=== PATIENT | female | born 1965 | race African-American/Black ===

== ENCOUNTER → 2020-07-04 | Outpatient (CLI) | payer OTHER ==
--- NOTE | 2020-07-04 10:42 | RAD ---
FOREARM LEFT, WRIST 2V LEFT DATE: 07/04/2020 12:00 AM INDICATION: ARM PAIN / Spl. Instructions: / History: COMPARISON: None. FINDINGS: Bones: There is no evidence of acute fracture or dislocation. Joints: The joint spaces are normal. Miscellaneous: None. IMPRESSION: No acute osseous abnormality. Electronically signed by: Vitaliy Buckley MD (07/04/2020 10:39 AM) [id number]
== END ==
LOC: PMG 10:13
PROVIDERS: ATTEND Family Medicine
DX: M79.602 Pain in left arm (principal)
CPT/HCPCS: 73090; 73100

== ENCOUNTER 2020-07-20 13:56 | Emergency (ER) | payer OTHER ==
[~2020-07-20] VITALS: Ht 177.8 cm; Wt 90.0 kg
[2020-07-20 14:00] VITALS: BP 152/106
--- NOTE | 2020-07-20 14:18 | PHYS DOC ---
Adult General Chief Complaint Chief Complaint: ITCHING HPI HPI Patient is a 52 year old female who presents with complaints of itching all over and skin peeling for the past 3 days. Patient reports that approximately a week to 10 days ago she seen her doctor for what she describes as a viral illness and was started on amoxicillin and prednisone. Patient states that her symptoms did not resolve and her Dr. Simpson placed her on additional antibiotic Z-Rayshawn which she completed just a few days ago. Patient states that she started to feel flushed and noticed that her her skin was itching all over and peeling. She states that she took a shower and scrubbed her skin to get the peeling skin particles off and used Eucerin cream lotion which seemed to help. Patient states she also took a Benadryl today which resolved her itching. Patient denies any recent fever or chills, shortness of breath, cough, nasal congestion, chest congestion, chest pains, or swelling of her extremities. Patient denies any abdominal pain, nausea, vomiting, diarrhea, or constipation. Patient denies any problems urinating, or vaginal discharge. Patient denies any back pains or pain in her joints. Patient denies any headaches focal weaknesses or sensory changes. Patient denies any increased urination or increased thirst, denies sw elling of her glands. Patient denies any recent depressions or anxieties. Patient denies homicidal or suicidal ideations. Patient denies being a cigarette smoker, denies drinking alcohol, denies any illicit drug use. Patient states nobody else living in her home is having the same symptoms. (AUSTEN ARTHUR APRN) Review of Systems Review of Systems Constitutional: Denies fever or chills, complains of itching all over that resolved with taking Benadryl today. Eyes: Denies change in visual acuity, redness, or eye pain HENT: Denies nasal congestion or sore throat Respiratory: Denies cough or shortness of breath Cardiovascular: No additional information not addressed in HPI GI: Denies abdominal pain, nausea, vomiting, bloody stools or diarrhea : Denies dysuria or hematuria Musculoskeletal: Denies back pain or joint pain Integument: Denies skin lesions, however complains of skin peeling all over, denies skin rashes. Neurologic: Denies headache, focal weakness or sensory changes Endocrine: Denies polyuria or polydipsia Psychiatric: Patient denies depressions, anxieties, homicidal, or suicidal ideations. All other systems were reviewed and found to be within normal limits, except as documented in this note. (AUSTEN ARTHUR APRN) Current Medications Current Medications Patient reports taking metoprolol prescription at home and took her normal dose today. (AUSTEN ARTHUR APRN) Allergies Allergies Patient denies any allergies to medications that she is aware of. Patient denies any food allergies that she is aware of. (AUSTEN ARTHUR APRN) Physical Exam Physical Exam Constitutional: Well developed, well nourished, no acute distress, non-toxic appearance. HENT: Normocephalic, atraumatic, bilateral external ears normal, oropharynx moist, no oral exudates, nose normal. Eyes: PERRLA, EOMI, conjunctiva normal, no discharge. Neck: Normal range of motion, no tenderness, supple, no stridor. Cardiovascular:Heart rate regular rhythm, no murmur, heart sounds S1-S2 auscultation. Lungs & Thorax: Bilateral breath sounds clear to auscultation all lung stallings Abdomen: Bowel sounds normal all 4 quadrants auscultation., soft, no tenderness, no masses, no pulsatile masses. Skin: Warm, dry, no erythema, physical exam presents with superficial desquamation along trunk buttocks bilateral lower and bilateral upper e xtremities without drainage, erythema, edema, no infectious process noted, no open skin lesions. Back: No tenderness, no CVA tenderness. Extremities: No tenderness, no cyanosis, no clubbing, ROM intact, no edema. Neurologic: Alert and oriented X 3, normal motor function, normal sensory function, no focal deficits noted. Psychologic: Affect normal, judgement normal, mood normal. (AUSTEN ARTHUR APRN) Current Patient Data Vital Signs Temperature 97.7 oral temp heart rate 92, 99% O2 sat on room air, blood pressure 154/106. (AUSTEN ARTHUR APRN) EKG EKG [] (AUSTEN ARTHUR APRN) Radiology/Procedures Radiology/Procedures [] (AUSTEN ARTHUR APRN) Heart Score Risk Factors: Risk Factors: DM, Current or recent (<one month) smoker, HTN, HLP, family history of CAD, obesity. Risk Scores: Risk Factors: DM, Current or recent (<one month) smoker, HTN, HLP, family history of CAD, obesity. (AUSTEN ARTHUR APRN) Course & Med Decision Making Course & Med Decision Making Pertinent Labs and Imaging studies reviewed. (See chart for details) 55-year-old female patient presents emergency department with complaints of skin itching and peeling for the last 3 days, patient feels like this started after she took amoxicillin, Z-Rayshawn, prednisone for what she describes as a viral illness these prescriptions were given to her by her Dr. Simpson. Patient states she took a Benadryl today which resolved her itching. Physical examination reveals a superficial skin sloughing consistent with a superficial desquamation dermatitis most likely related to an allergic reaction to her recently taken medications. There is no erythema noted, no raised rash noted, skin sloughing presentation was of irregular borders with sizes from pinpoint to approximately 3 mm in diameter, there was no drainage, no open lesions, this does not present like Velasquez-Raphael syndrome there is no evidence of a toxic epidermal necrolysis, this does not present consistent with eczema. Discussed physical findings with patient, will prescribe p.o. Atarax for itching, triamcinolone cream for dry skin symptoms, patient will continue to take [id number] Benadryl 3 times a day as needed for itching, patient states she will follow-up with her Dr. Simpson tomorrow morning. Patient gave verbal understanding of discharge instructions, return to ER concerns, patient had no further questions or concerns, patient discharged home without incident. (AUSTEN ARTHUR APRN) Dragon Disclaimer Dragon Disclaimer This electronic medical record was generated, in whole or in part, using a voice recognition dictation system. (AUSTEN ARTHUR APRN) Attending Co-Sign The patient was seen and interviewed as well as examined at the bedside. The chart was reviewed. The case was discussed. Agree with the plan of care. (RAN TEJEDA DO) Departure Departure: Impression: Primary Impression: Allergic reaction Additional Impression: Desquamative dermatitis Disposition: 01 DC HOME SELF CARE/HOMELESS Condition: STABLE Referrals: CORNELIO SIMPSON MD (PCP) Patient Instructions: Itching-Brief Additional Instructions: TAKE PRESCRIBED MEDICATIONS DIRECTED, return to the emergency department for worsening symptoms, see your Dr. Manning tomorrow for reevaluation. Scripts Hydroxyzine Hcl (HYDROXYZINE HCL) 10 Mg Tablet 25 MG PO Q6-8HRS for ITCHING, #10 TAB Prov: AUSTEN ARTHUR APRN 07/20/20 Triamcinolone Acetonide (TRIAMCINOLONE ACETONIDE 0.025% CREAM) 15 Gm Cream..g. 1 KAYLIN TP BID for DRY SKIN ITCHING, #30 GM Prov: AUSTEN ARTHUR APRN 07/20/20 Problem Qualifiers Primary Impression: Allergic reaction Encounter type: initial encounter Qualified Codes: T78.40XA - Allergy, unspecified, initial encounter AUSTEN ARTHUR APRN Jul 20, 2020 14:18 RAN TEJEDA DO Jul 21, 2020 06:18
[2020-07-20] MEDS ORDERED: hydrOXYzine HCL 25 MG TABLET PO PRN (14:45)
[2020-07-20] MEDS ORDERED: HYDR10TA2 PO (14:58)
[2020-07-20] MEDS ORDERED: TRIA15CR2 TP (14:58)
== END 2020-07-20 15:00 | disposition home or self-care (01) ==
LOC: ER 13:56
DX: L30.8 Other specified dermatitis (principal); T36.0X5A Adverse effect of penicillins, initial encounter; T38.0X5A Adverse effect of glucocorticoids and synthetic analogues, initial encounter; Y92.89 Other specified places as the place of occurrence of the external cause
CPT/HCPCS: 99283

== ENCOUNTER 2020-07-30 14:55 | Emergency (ER) | payer OTHER ==
[~2020-07-30] VITALS: Ht 177.8 cm; Wt 90.0 kg
[~2020-07-30 14:55] MED LIST: HYDR10TA2 PO; TRIA15CR2 TP
[2020-07-30 15:15] VITALS: BP 154/86
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
[2020-07-30] MEDS ORDERED: CYCL-331 PO (16:26)
[2020-07-30] MEDS ORDERED: DICL50TA2 PO (16:26)
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
== END 2020-07-30 16:42 | disposition home or self-care (01) ==
LOC: ER 14:55
DX: S13.4XXA Sprain of ligaments of cervical spine, initial encounter (principal); M25.511 Pain in right shoulder; M25.551 Pain in right hip; M54.5 Low back pain; E11.9 Type 2 diabetes mellitus without complications; I10 Essential (primary) hypertension; Z98.84 Bariatric surgery status; Z88.5 Allergy status to narcotic agent; Z88.8 Allergy status to other drugs, medicaments and biological substances; V89.2XXA Person injured in unspecified motor-vehicle accident, traffic, initial encounter; Y93.I9 Activity, other involving external motion; Y92.488 Other paved roadways as the place of occurrence of the external cause; Y99.8 Other external cause status
CPT/HCPCS: 72100; 72125; 73030; 73502; 99284

== ENCOUNTER → 2020-11-11 | Outpatient (CLI) | payer MEDICAID, MEDICARE, OTHER ==
[~2020-11-11] MED LIST changes: +CYCL-331 PO; +DICL50TA2 PO
--- NOTE | 2020-11-11 16:27 | RAD ---
EXAMINATION: CT BONY PELVIS WITHOUT IV CONTRAST CLINICAL HISTORY: Chronic pain syndrome TECHNIQUE: Noncontrast serial axial images obtained through the bony pelvis with sagittal and coronal reconstructions. CT Dose Reduction Employed: One or more of the following individualized dose reduction techniques wer e utilized for this examination: 1. Automated exposure control 2. Adjustment of the mA and/or kV ac cording to patient size 3. Use of iterative reconstruction technique. COMPARISON: MR L-spine 09/25/2020 and 11/25/2015, Right hip radiographs 07/30/2020 FINDINGS: Residual streak artifact related to bilateral total hip arthroplasties despite metal artifact reducti on technique somewhat limits evaluation. Intact bilateral total hip arthroplasties in satisfactory alignment with no definitive evidence of brandon rdware complication. Tips of the acetabular screws penetrating the posterior cortex bilaterally. Mild to moderate degenerative changes bilateral SI joints, greatest in the anterior right SI joint. P ubic symphysis maintained. Partially visualized lumbar degenerative changes. Nonspecific mild patchy sclerosis and lucencies in the bilateral vinny which appears to been present since at least 2015. No a cute fracture. Chronic tendinosis bilateral hamstrings origins. Limited evaluation of the muscles and tendons otherw ise unremarkable. Postoperative changes in the soft tissues overlying the lateral hips. Postoperative changes in the lower abdomen related to partial bowel resection. Layering hyperdensity in the gallbladder, compatible with cholelithiasis and/or hyperdense sludge. Vascular calcifications. IMPRESSION: Bilateral total hip arthroplasties without evidence of hardware complication. Degenerative changes as described. Electronically signed by: Mike Perkins DO (11/11/2020 4:24 PM) [id number]
== END ==
LOC: CT 10:43
PROVIDERS: ATTEND Family Medicine
DX: M46.1 Sacroiliitis, not elsewhere classified (principal); G89.4 Chronic pain syndrome; M47.816 Spondylosis without myelopathy or radiculopathy, lumbar region; Z96.643 Presence of artificial hip joint, bilateral
CPT/HCPCS: 73700

== ENCOUNTER → 2020-11-29 | Outpatient (CLI) | payer OTHER, MEDICAID ==
--- NOTE | 2020-11-29 16:42 | RAD ---
BILATERAL RIB DETAIL SERIES AND PA VIEW CHEST X-RAY-TOTAL OF 5 VIEWS Clinical indications: Fall with chest and rib pain. No acute rib fracture is seen on either side. Chest x-ray demonstrates no acute lung infiltrate or pleural effusion or pulmonary edema or pneumotho rax or lung mass. The heart size and pulmonary vasculature and mediastinum and both heather are unremark able. IMPRESSION: No acute rib fracture is evident. Electronically signed by: Vicente Ferrari MD (11/29/2020 4:39 PM) [id number]
== END ==
LOC: DXRAD 16:05
PROVIDERS: ATTEND Nurse Practitioner Family
DX: R07.81 Pleurodynia (principal)
CPT/HCPCS: 71111

== ENCOUNTER 2020-12-23 15:48 | Emergency (ER) | payer OTHER, MEDICAID ==
[~2020-12-23] VITALS: Ht 177.8 cm; Wt 90.0 kg
[2020-12-23 15:57] VITALS: BP 137/86
[2020-12-23] MEDS ORDERED: HYDROcodone/APAP 5/325MG 1 TAB TABLET PO ONE (16:45)
--- NOTE | 2020-12-23 17:17 | RAD ---
STUDY: US BILATERAL LOWEREXTREMITY VENOUS DOPPLER INDICATION: Lower extremity swelling. DVT. TECHNIQUE: Color-flow and pulsed wave duplex ultrasound with compression of venous structures of the bilateral lower extremities. COMPARISON: 09/07/2013 FINDINGS: Duplex ultrasound with compression of the deep venous structures of the bilateral lower extremities f rom the common femoral vein through the popliteal vein is negative for DVT. The posterior tibial and peroneal veins are segmentally visualized and patent where seen. Normal veno us waveforms and augmentation are noted throughout. Nonspecific subcutaneous edema below the knee on both the right and left. IMPRESSION: No deep venous thrombosis throughout either lower extremity. Electronically signed by: RAMA VICENTE MD (12/23/2020 5:15 PM) [facility]
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
== END 2020-12-23 18:10 | disposition home or self-care (01) ==
LOC: ER 15:48
DX: R22.43 Localized swelling, mass and lump, lower limb, bilateral (principal); G89.29 Other chronic pain; E11.9 Type 2 diabetes mellitus without complications; I10 Essential (primary) hypertension; Z98.84 Bariatric surgery status; Z88.5 Allergy status to narcotic agent; Z88.8 Allergy status to other drugs, medicaments and biological substances
CPT/HCPCS: 93970; 99284-25

== ENCOUNTER 2021-07-30 16:00 | Emergency (ER) | payer MEDICAID, OTHER ==
[~2021-07-30] VITALS: Ht 177.8 cm; Wt 107.0 kg
[~2021-07-30 16:00] MED LIST changes: -CYCL-331 PO; +CYCL10TA19 PO
--- NOTE | 2021-07-30 16:39 | PHYS DOC ---
Past History Past Medical History: CHF, Diabetes, Hypertension (MIKY LEONG ALLEY WORKER) Past Surgical History: Gastric Bypass, Hip Replacement Additional Past Surgical Histo: back (MIKY LEONG ALLEY WORKER) Alcohol Use: None (MIKY LEONG ALLEY WORKER) Adult General Chief Complaint Chief Complaint: MULTIPLE COMPLAINTS HPI HPI Patient is a 56-year-old female patient with history of diabetes type 2, hypertension, CHF with chronic lower extremity edema who presents to the ED today complaining of moderate pain to the right hip that began on July 24, 2021 after she fell. Patient denies any loss of consciousness when she fell. She states the pain has gotten worse hence the reason she came to the ED. She is on oxycodone 10/325 mg which she took prior to coming to the ED with no relief. She appears lethargic. She states this is from the oxycodone. She states she is on Lasix but she takes it whenever she chooses to not as prescribed (MIKY LEONG ALLEY WORKER) Review of Systems Review of Systems Constitutional: Denies fever or chills [] Eyes: Denies change in visual acuity, redness, or eye pain [] HENT: Denies nasal congestion or sore throat [] Respiratory: Denies cough or shortness of breath [] Cardiovascular: No additional information not addressed in HPI [] GI: Denies abdominal pain, nausea, vomiting, bloody stools or diarrhea [] : Denies dysuria or hematuria [] Musculoskeletal: Reports right hip pain. Reports bilateral lower extremity swelling Integument: Denies rash or skin lesions [] Neurologic: Denies headache, focal weakness or sensory changes [] All other systems were reviewed and found to be within normal limits, except as documented in this note. (MIKY LEONG [employer]LEY WORKER) Allergies Allergies Allergies Coded Allergies Type Severity Reaction Last Updated Verified prednisone Allergy Unknown 07/30/20 Yes hydromorphone Adverse Reaction Unknown 07/30/21 Yes (MIKY [employer]ONG [employer]LEY WORKER) Physical Exam Physical Exam Constitutional: Well developed, well nourished, no acute distress, non-toxic appearance. [] HENT: Normocephalic, atraumatic, bilateral external ears normal, oropharynx moist, no oral exudates, nose normal. [] Eyes: PERRLA, EOMI, conjunctiva normal, no discharge. [] Neck: Normal range of motion, no tenderness, supple, no stridor. [] Cardiovascular:Heart rate regular rhythm, no murmur [] Lungs & Thorax: Bilateral breath sounds clear to auscultation [] Abdomen: Bowel sounds normal, soft, no tenderness, no masses, no pulsatile masses. [] Skin: Warm, dry, no erythema, no rash. [] Back: No tenderness, no CVA tenderness. [] Extremities: Right hip with no obvious deformity, old healed surgical incision noted on the lateral aspect of the hip, tenderness on palpation of the right hip. Limited range of motion to the right hip due to pain. +3 edema to bilateral lower extremities, capillary fill less than 2 seconds bilateral lower extremities. Negative Homans' sign bilaterally. Neurologic: Alert and oriented X 3, normal motor function, normal sensory function, no focal deficits noted. [] Psychologic: Flat affect, lethargic (MIKY LEONG APRN) Current Patient Data Vital Signs Vital Signs Date Time Temp Pulse Resp B/P (MAP) Pulse Ox O2 Delivery O2 Flow Rate FiO2 07/30/21 16:15 98.7 95 18 133/76 (95) 98 (MIKY LEONG APRN) EKG EKG [address] Tejeda sinus rhythm HR 89 no STEMI[] (MIKY LEONG APRN) Radiology/Procedures Radiology/Procedures []PROCEDURE: HIP RIGHT 2V WITH PELVIS Study: XR BILATERAL HIP (WITH OR WITHOUT PELVIS) 2 VIEWS_RIGHT Indication: Fall. Comparison: 07/30/2020 Findings: Bilateral total hip arthroplasty constructs. The right construct is intact and well fixated. The partially assessed left construct is unremarkable. The femoral heads appear well-seated within the acetabular cups. The bones are osteopenic. Taking this into consideration no periprosthetic fracture is identified or fracture elsewhere throughout the pelvis noting incomplete evaluation of the sacrum and lower lumbar spine. Impression: No radiographic evidence for an acute fracture noting diffuse osteopenia. Bilateral total hip arthroplasty constructs are unremarkable. Electronically signed by: RAMA VICENTE MD (07/30/2021 5:12 PM) [facility] DICTATED AND SIGNED BY: RAMA VICENTE MD DATE: 07/30/21 8325 CC: MIKY LEONG APRN; CORNELIO RIBEIRO MD ~MTH0 0 PROCEDURE: PORTABLE CHEST 1V Study: XR CHEST 1V Indication: Fall. Comparison: 11/29/2012 Findings: No pneumothorax or pleural effusion. Hazy attenuation at the right lung base favored secondary to volume loss. Overall similar aeration pattern of the lungs the prior noting differences in technique. The cardiomediastinal silhouette appears mildly prominent in size but accentuated by AP imaging. The osseous structures are not fully evaluated but no displaced fracture is readily apparent. Vascular calcifications. Impression: No acute radiographic abnormality of the chest. Electronically signed by: RAMA VICENTE MD (07/30/2021 5:15 PM) [facility] DICTATED AND SIGNED BY: RAMA VICENTE MD DATE: 07/30/211711 CC: MIKY LEONG APRN; CORNELIO RIBEIRO MD ~MTH0 0 (MIKY LEONG APRN) Heart Score C/O Chest Pain: N/A Risk Factors: Risk Factors: DM, Current or recent (<one month) smoker, HTN, HLP, family history of CAD, obesity. Risk Scores: Risk Factors: DM, Current or recent (<one month) smoker, HTN, HLP, family history of CAD, obesity. (MIKY LEONG APRN) Course & Med Decision Making Course & Med Decision Making Pertinent Labs and Imaging studies reviewed. (See chart for details) This is a 56-year-old female patient presenting to the ED today with complaints of right hip pain, symptoms began July 20, 2021 after falling. Also complaining of chronic bilateral lower extremity edema. History of CHF on Lasix which she reports she takes as she chooses not as prescribed. EKG is negative, chest x-ray is negative, right hip x-rays including pelvis were negative. CBC CMP troponin-no acute findings, BNP 551. Patient was given 1 dose of oral Lasix and encouraged to take her Lasix every day as prescribed. Encouraged to elevate bilateral lower extremities. Compression stockings also encouraged. She already has oxycodone for pain. F/u with PCP next week and Ortho (MIKY LEONG APRN) Dragon Disclaimer Dragon Disclaimer This electronic medical record was generated, in whole or in part, using a voice recognition dictation system. (MIKY LEONG APRN) Attending Co-Sign The patient was seen and interviewed as well as examined at the bedside. The chart was reviewed. The case was discussed. Agree with the plan of care. (RAN TEJEDA DO) Departure Departure: Impression: Primary Impression: Fall Additional Impressions: Contusion of right hip Lower extremity edema Disposition: HOME / SELF CARE / HOMELESS Condition: STABLE Referrals: CORNELIO RIBEIRO MD (PCP) Please contact your doctor next week and set up a follow-up appointment Patient Instructions: Edema, Hip Pain Additional Instructions: You were right knee x-rays are negative for any acute findings, you were also evaluated for lower extremity swelling, your work-up related to your lower extremity swelling is negative for any acute findings. You must take your Lasix/water pill as prescribed. Also buy compression stockings and wear them especially during the day. Also elevate bilateral lower extremities. Please contact your doctor tomorrow and set up a follow-up appointment Problem Qualifiers Primary Impression: Fall Encounter type: initial encounter Qualified Codes: W19.XXXA - Unspecified fall, initial encounter Additional Impressions: Contusion of right hip Encounter type: initial encounter Qualified Codes: S70.01XA - Contusion of right hip, initial encounter MIKY LEONG APRN Jul 30, 2021 16:39 RAN TEJEDA DO Jul 31, 2021 07:26
--- NOTE | 2021-07-30 17:15 | RAD ---
Study: XR BILATERAL HIP (WITH OR WITHOUT PELVIS) 2 VIEWS_RIGHT Indication: Fall. Comparison: 07/30/2020 Findings: Bilateral total hip arthroplasty constructs. The right construct is intact and well fixated. The part ially assessed left construct is unremarkable. The femoral heads appear well-seated within the acetab ular cups. The bones are osteopenic. Taking this into consideration no periprosthetic fracture is minerva ntified or fracture elsewhere throughout the pelvis noting incomplete evaluation of the sacrum and lo wer lumbar spine. Impression: No radiographic evidence for an acute fracture noting diffuse osteopenia. Bilateral total hip arthrop lasty constructs are unremarkable. Electronically signed by: RAMA VICENTE MD (07/30/2021 5:12 PM) [facility]
--- NOTE | 2021-07-30 17:17 | RAD ---
Study: XR CHEST 1V Indication: Fall. Comparison: 11/29/2012 Findings: No pneumothorax or pleural effusion. Hazy attenuation at the right lung base favored secondary to vol ume loss. Overall similar aeration pattern of the lungs the prior noting differences in technique. Th e cardiomediastinal silhouette appears mildly prominent in size but accentuated by AP imaging. The osseous structures are not fully evaluated but no displaced fracture is readily apparent. Vascula r calcifications. Impression: No acute radiographic abnormality of the chest. Electronically signed by: RAMA VICENTE MD (07/30/2021 5:15 PM) [facility]
--- NOTE | 2021-07-30 17:22 | EKG ---
[address] [address] Test Date: 2021-07-30 Test Time: 16:45:03 Pat Name: SUSAN WALKER Department: Room: Gender: F Senior Information Security Consultant: DEVYN : 1965 Requested By: MIKY LEONG Order Number: [id number] Reading MD: Garrett Welsh MD Measurements Intervals [place] Rate: 89 P: 41 OK: 108 QRS: 31 QRSD: 90 T: 24 QT: 378 QTc: 467 Interpretive Statements SINUS RHYTHM Electronically Signed On 07-31-2021 13:25:39 MINE MOTOR ENGINEER by Garrett Welsh MD
[2021-07-30 17:27] LABS: BASO % 1 % (0-3); EOS # 0.2 x10^3/uL (0.0-0.7); EOS % 4 % (0-3); HEMATOCRIT 42.2 % (36.0-47.0); HEMOGLOBIN 13.9 g/dL (12.0-15.5); LYMPH # 1.4 x10^3/uL (1.0-4.8); LYMPH % 29 % (24-48); MEAN CORPUSCULAR HEMOGLOBIN 34 pg (25-35); MEAN CORPUSCULAR HGB CONC 33 g/dL (31-37); MEAN CORPUSCULAR VOLUME 102 fL (79-100); MONO # 0.4 x10^3/uL (0.0-1.1); MONO % 8 % (0-9); NEUT # 2.7 x10^3uL (1.8-7.7); NEUT % 58 % (31-73); PLATELET COUNT 223 x10^3/uL (140-400); RED BLOOD COUNT 4.13 x10^6/uL (3.50-5.40); RED CELL DISTRIBUTION WIDTH 15.3 % (11.5-14.5); WHITE BLOOD COUNT 4.7 x10^3/uL (4.0-11.0)
[2021-07-30 17:31] LABS: CALCIUM 9.2 mg/dL (8.5-10.1); CREATININE 0.6 mg/dL (0.6-1.0); GFR 124.7; POTASSIUM 3.9 mmol/L (3.5-5.1)
[2021-07-30 17:44] LABS: ALBUMIN 3.4 g/dL (3.4-5.0); ALBUMIN/GLOBULIN RATIO 0.9 (1.0-1.7); MAGNESIUM 2.2 mg/dL (1.8-2.4); TOTAL BILIRUBIN 0.4 mg/dL (0.2-1.0); TOTAL PROTEIN 7.3 g/dL (6.4-8.2)
[2021-07-30] MEDS ORDERED: FUROSEMIDE 40 MG TABLET PO ONE (18:15)
[2021-07-30 18:45] LABS: BARBITURATES NEG (NEG); BENZODIAZEPINES NEG (NEG); CANNABINOIDS NEG (NEG); COCAINE NEG (NEG); METHADONE NEG (NEG); OPIATES POS (NEG); PHENCYCLIDINE NEG (NEG)
[2021-07-30 18:56] LABS: BACTERIA,URINE 0 /HPF (0-FEW); BILIRUBIN,URINE NEG (NEG); CLARITY,URINE CLEAR; COLOR,URINE YELLOW; GLUCOSE,URINE NEG (NEG); NITRITE,URINE NEG (NEG); RBC,URINE 0 /HPF (0-2); SQUAMOUS EPITHELIAL CELL,UR FEW /LPF; UROBILINOGEN,URINE 0.2 mg/dL (0.2 mg/dL); WBC,URINE OCC /HPF (0-4)
[2021-07-30 18:57] LABS: AMPHETAMINE/METHAMPHETAMINE NEG (NEG)
[2021-07-30 19:15] VITALS: BP 126/74
== END 2021-07-30 19:15 | disposition home or self-care (01) ==
LOC: ER 16:00
DX: S70.01XA Contusion of right hip, initial encounter (principal); E11.9 Type 2 diabetes mellitus without complications; I10 Essential (primary) hypertension; I87.1 Compression of vein; Z88.6 Allergy status to analgesic agent; W18.39XA Other fall on same level, initial encounter; Y93.89 Activity, other specified; Y92.89 Other specified places as the place of occurrence of the external cause; Y99.8 Other external cause status
CPT/HCPCS: 36415; 71045; 73502; 80053; 80307; 81001; 83735; 83880; 84484; 85025; 93005; 99285-25